=== PATIENT | male | born 1950 | race Two or more races ===

== ENCOUNTER 2017-09-17 14:30 | Inpatient (IN) | payer MEDICARE, MEDICAID ==
[~2017-09-17] VITALS: Ht 180.3 cm; Wt 78.0 kg
[2017-09-17 14:30] VITALS: BP 153/74
[~2017-09-17 14:30] MED LIST: AMLO2.5T45 PO; BENA10TA3 PO; DIAM PO; DOCU-150 PO; METF10002 PO; NPH,100I SQ; SITA50TA3 PO
[2017-09-17 15:30] VITALS: BP 153/74
[2017-09-17] MEDS ORDERED: DIPHENHYDRAMINE 25MG CAPSULE PO PRN (15:45)
[2017-09-17] MEDS ORDERED: GUAIFENESIN 200MG/10ML SUGAR FREE UDC PO PRN (15:45)
[2017-09-17] MEDS ORDERED: NA PHOS,M-B/NA PHOS,DI-BA ENEMA 118ML PR PRN (15:45)
[2017-09-17] MEDS ORDERED: IPRATROPIUM/ALBUTEROL 0.5-3(2.5)MG/3ML NEB HHN PRN (15:45)
[2017-09-17] MEDS ORDERED: CLONIDINE 0.1MG TABLET PO PRN (15:45)
[2017-09-17] MEDS ORDERED: DEXTROSE 50% WATER 50ML SYRINGE IV PRN (15:45)
[2017-09-17] MEDS ORDERED: LORAZEPAM 0.5MG TABLET PO PRN (15:45)
[2017-09-17] MEDS ORDERED: ACETAMINOPHEN 325MG TABLET PO PRN (15:45)
[2017-09-17] MEDS ORDERED: ONDANSETRON HCL 4MG TABLET PO PRN (15:45)
[2017-09-17] MEDS ORDERED: MAGNESIUM/ALUMINUM HYDROXIDE/SIMETHICONE 30ML UDC PO PRN (15:45)
[2017-09-17] MEDS: HYDROCODONE/ACETAMINOPHEN 10/325MG TABLET PO PRN (16:08)
[2017-09-17] MEDS: METFORMIN HCL 500MG TABLET PO SCH (17:08)
[2017-09-17] MEDS: BLOOD SUGAR DIAGNOSTIC STRIP TEST SCH ×2 (17:12→21:00)
[2017-09-17] MEDS ORDERED: LACTULOSE 20G/30ML UDC PO PRN (18:00)
[2017-09-17] MEDS ORDERED: BISACODYL 5MG TABLET PO PRN (18:00)
[2017-09-17] MEDS: INSULIN LISPRO 100 UNITS/ML SUBCUT SCH ×2 (18:43→22:01)
[2017-09-17] MEDS: DOCUSATE SODIUM 100MG CAPSULE PO SCH (18:44)
[2017-09-17 20:00] VITALS: BP 121/55
[2017-09-17] MEDS: METOPROLOL TARTRATE 50MG TABLET PO SCH (21:55)
[2017-09-17] MEDS: BENAZEPRIL 20MG TABLET PO SCH (21:56)
[2017-09-18] MEDS: HYDROCODONE/ACETAMINOPHEN 10/325MG TABLET PO PRN (05:44)
[2017-09-18] MEDS: BLOOD SUGAR DIAGNOSTIC STRIP TEST SCH ×4 (05:56→21:49)
[2017-09-18] MEDS: INSULIN LISPRO 100 UNITS/ML SUBCUT SCH ×4 (05:56→22:03)
[2017-09-18 08:00] VITALS: BP 138/69
[2017-09-18] MEDS: DOCUSATE SODIUM 100MG CAPSULE PO SCH ×2 (08:37→17:11)
[2017-09-18] MEDS: AMLODIPINE 2.5MG TABLET PO SCH (08:38)
[2017-09-18] MEDS: METOPROLOL TARTRATE 50MG TABLET PO SCH ×2 (08:38→22:00)
[2017-09-18] MEDS: ACETAZOLAMIDE 500MG ER CAPSULE PO SCH (08:38)
[2017-09-18] MEDS: METFORMIN HCL 500MG TABLET PO SCH ×2 (08:38→17:11)
[2017-09-18] MEDS: BENAZEPRIL 20MG TABLET PO SCH ×2 (08:39→21:59)
[2017-09-18] MEDS ORDERED: POTASSIUM CHLORIDE 20MEQ TABLET SR PO SCH (11:00)
[2017-09-18] MEDS: LINAGLIPTIN 5MG TABLET PO SCH (11:22)
[2017-09-18 12:20] LABS: HEMATOCRIT. 40.1 % (42.0-52.0); HEMOGLOBIN. 13.3 g/dL (14.0-18.0); MEAN CORPUSCULAR HEMOGLOBIN 27.8 pg (28.0-32.0); MEAN CORPUSCULAR VOLUME 83.6 fL (80.0-94.0); MEAN PLATELET VOLUME 7.7 fl (7.4-10.4); PLATELET 264 x1000/uL (130-400); RED CELL DISTRIBUTION WIDTH 13.9 % (11.6-14.6)
[2017-09-18 12:36] LABS: CHLORIDE 109 mEq/L (98-107)
[2017-09-18 13:29] LABS: PLATELET ESTIMATE NORMAL
[2017-09-18 20:46] VITALS: BP 125/70
[2017-09-18] MEDS: HYDROCODONE/ACETAMINOPHEN 5/325MG TABLET PO PRN (22:19)
[2017-09-19] MEDS: BLOOD SUGAR DIAGNOSTIC STRIP TEST SCH ×4 (06:31→21:00)
[2017-09-19] MEDS: INSULIN LISPRO 100 UNITS/ML SUBCUT SCH ×4 (06:35→22:11)
[2017-09-19 06:59] LABS: HEMATOCRIT 36.6 % (42.0-52.0); HEMOGLOBIN 12.4 g/dL (14.0-18.0); MEAN CORPUSCULAR HEMOGLOBIN 28.3 pg (28.0-32.0); MEAN CORPUSCULAR VOLUME 83.3 fL (80.0-94.0); PLATELET 254 x1000/uL (130-400); RED BLOOD CELL COUNT 4.39 mill/uL (4.7-6.1); RED CELL DISTRIBUTION WIDTH 13.9 % (11.6-14.6)
[2017-09-19 07:34] LABS: CHLORIDE 110 mEq/L (98-107)
[2017-09-19 08:00] VITALS: BP 119/62
[2017-09-19] MEDS: METOPROLOL TARTRATE 50MG TABLET PO SCH ×2 (08:42→22:18)
[2017-09-19] MEDS: AMLODIPINE 2.5MG TABLET PO SCH (08:42)
[2017-09-19] MEDS: BENAZEPRIL 20MG TABLET PO SCH ×2 (08:43→21:00)
[2017-09-19] MEDS: METFORMIN HCL 500MG TABLET PO SCH ×2 (08:43→18:37)
[2017-09-19] MEDS: DOCUSATE SODIUM 100MG CAPSULE PO SCH ×2 (08:43→18:38)
[2017-09-19] MEDS: ACETAZOLAMIDE 500MG ER CAPSULE PO SCH (08:43)
[2017-09-19] MEDS: HYDROCODONE/ACETAMINOPHEN 5/325MG TABLET PO PRN (09:11)
[2017-09-19] MEDS ORDERED: POTASSIUM CHLORIDE 20MEQ TABLET SR PO NR (10:00)
[2017-09-19] MEDS: LINAGLIPTIN 5MG TABLET PO SCH (11:49)
[2017-09-19] MEDS: HYDROCODONE/ACETAMINOPHEN 10/325MG TABLET PO PRN (15:44)
[2017-09-19] MEDS: FERROUS SULFATE 325MG TABLET PO SCH (18:38)
[2017-09-19 20:00] VITALS: BP 126/64
[2017-09-20] MEDS: BLOOD SUGAR DIAGNOSTIC STRIP TEST SCH ×4 (06:35→20:59)
[2017-09-20] MEDS: HYDROCODONE/ACETAMINOPHEN 10/325MG TABLET PO PRN ×2 (06:45→12:56)
[2017-09-20] MEDS: INSULIN LISPRO 100 UNITS/ML SUBCUT SCH ×4 (06:48→20:57)
[2017-09-20 07:42] LABS: CHLORIDE 110 mEq/L (98-107)
[2017-09-20 08:00] VITALS: BP 108/61
[2017-09-20] MEDS: BENAZEPRIL 20MG TABLET PO SCH ×2 (09:00→20:59)
[2017-09-20] MEDS: METOPROLOL TARTRATE 50MG TABLET PO SCH ×2 (09:00→20:43)
[2017-09-20] MEDS: AMLODIPINE 2.5MG TABLET PO SCH (09:00)
[2017-09-20] MEDS: ASPIRIN 81MG TABLET PO SCH (09:33)
[2017-09-20] MEDS: DOCUSATE SODIUM 100MG CAPSULE PO SCH ×2 (09:33→17:45)
[2017-09-20] MEDS: METFORMIN HCL 500MG TABLET PO SCH ×2 (09:33→17:45)
[2017-09-20] MEDS: POTASSIUM CHLORIDE 20MEQ TABLET SR PO SCH (09:33)
[2017-09-20] MEDS: FERROUS SULFATE 325MG TABLET PO SCH ×2 (09:33→17:45)
[2017-09-20] MEDS: LINAGLIPTIN 5MG TABLET PO SCH (12:53)
[2017-09-20] MEDS ORDERED: POTASSIUM CHLORIDE 20MEQ TABLET SR PO SCH (13:45)
[2017-09-20 20:00] VITALS: BP 117/69
[2017-09-21] MEDS: BLOOD SUGAR DIAGNOSTIC STRIP TEST SCH ×4 (05:36→21:00)
[2017-09-21] MEDS: INSULIN LISPRO 100 UNITS/ML SUBCUT SCH ×4 (06:01→22:02)
[2017-09-21 07:16] LABS: CHLORIDE 108 mEq/L (98-107)
[2017-09-21 08:00] VITALS: BP 128/65
[2017-09-21] MEDS: HYDROCODONE/ACETAMINOPHEN 10/325MG TABLET PO PRN (08:26)
[2017-09-21] MEDS: FERROUS SULFATE 325MG TABLET PO SCH ×2 (08:26→17:12)
[2017-09-21] MEDS: POTASSIUM CHLORIDE 20MEQ TABLET SR PO SCH (08:26)
[2017-09-21] MEDS: ASPIRIN 81MG TABLET PO SCH (08:27)
[2017-09-21] MEDS: AMLODIPINE 2.5MG TABLET PO SCH (08:28)
[2017-09-21] MEDS: BENAZEPRIL 20MG TABLET PO SCH ×2 (08:29→21:59)
[2017-09-21] MEDS: METFORMIN HCL 500MG TABLET PO SCH ×2 (09:49→17:12)
[2017-09-21] MEDS: DOCUSATE SODIUM 100MG CAPSULE PO SCH ×2 (09:49→17:12)
[2017-09-21] MEDS: METOPROLOL TARTRATE 50MG TABLET PO SCH ×2 (09:50→22:00)
[2017-09-21] MEDS: LINAGLIPTIN 5MG TABLET PO SCH (12:04)
[2017-09-21 20:00] VITALS: BP 135/70
[2017-09-21] MEDS: HYDROCODONE/ACETAMINOPHEN 5/325MG TABLET PO PRN (21:59)
[2017-09-21] MEDS: INSULIN NPH (HUMULIN-N) 100 UNITS/ML 3ML VIAL SUBCUT SCH (22:02)
[2017-09-22] MEDS: BLOOD SUGAR DIAGNOSTIC STRIP TEST SCH ×4 (06:02→20:43)
[2017-09-22] MEDS: INSULIN LISPRO 100 UNITS/ML SUBCUT SCH ×4 (06:02→21:03)
[2017-09-22] MEDS: HYDROCODONE/ACETAMINOPHEN 5/325MG TABLET PO PRN (06:45)
[2017-09-22 07:35] LABS: CHLORIDE 108 mEq/L (98-107)
[2017-09-22 08:00] VITALS: BP 122/66
[2017-09-22] MEDS: FERROUS SULFATE 325MG TABLET PO SCH ×2 (09:23→17:06)
[2017-09-22] MEDS: METFORMIN HCL 500MG TABLET PO SCH ×2 (09:23→17:06)
[2017-09-22] MEDS: ASPIRIN 81MG TABLET PO SCH (09:23)
[2017-09-22] MEDS: POTASSIUM CHLORIDE 20MEQ TABLET SR PO SCH (09:23)
[2017-09-22] MEDS: DOCUSATE SODIUM 100MG CAPSULE PO SCH ×2 (09:23→17:06)
[2017-09-22] MEDS: AMLODIPINE 2.5MG TABLET PO SCH (09:24)
[2017-09-22] MEDS: BENAZEPRIL 20MG TABLET PO SCH ×2 (09:24→20:43)
[2017-09-22] MEDS ORDERED: POTASSIUM CHLORIDE 20MEQ TABLET SR PO STA (09:35)
[2017-09-22] MEDS ORDERED: POTASSIUM CHLORIDE 20MEQ TABLET SR PO NR (09:45)
[2017-09-22] MEDS: LINAGLIPTIN 5MG TABLET PO SCH (11:49)
[2017-09-22] MEDS: METOPROLOL TARTRATE 50MG TABLET PO SCH ×2 (11:49→20:42)
[2017-09-22] MEDS: LIDOCAINE 5% PATCH TOP SCH (11:58)
[2017-09-22 20:00] VITALS: BP 120/63
[2017-09-22] MEDS: HYDROCODONE/ACETAMINOPHEN 10/325MG TABLET PO PRN (20:05)
[2017-09-22] MEDS ORDERED: HYDROCODONE/ACETAMINOPHEN 5/325MG TABLET PO PRN (20:30)
[2017-09-22] MEDS ORDERED: LORAZEPAM 0.5MG TABLET PO PRN (20:30)
[2017-09-22] MEDS: INSULIN NPH (HUMULIN-N) 100 UNITS/ML 3ML VIAL SUBCUT SCH (21:03)
[2017-09-23] MEDS: INSULIN LISPRO 100 UNITS/ML SUBCUT SCH (05:43)
[2017-09-23] MEDS: BLOOD SUGAR DIAGNOSTIC STRIP TEST SCH (05:43)
[2017-09-23] MEDS: HYDROCODONE/ACETAMINOPHEN 10/325MG TABLET PO PRN (06:35)
[2017-09-23 07:16] LABS: CHLORIDE 107 mEq/L (98-107)
[2017-09-23 08:00] VITALS: BP 129/78
[2017-09-23] MEDS: FERROUS SULFATE 325MG TABLET PO SCH (08:45)
[2017-09-23] MEDS: POTASSIUM CHLORIDE 20MEQ TABLET SR PO SCH (08:46)
[2017-09-23] MEDS: ASPIRIN 81MG TABLET PO SCH (08:46)
[2017-09-23] MEDS: METFORMIN HCL 500MG TABLET PO SCH (08:46)
[2017-09-23] MEDS: DOCUSATE SODIUM 100MG CAPSULE PO SCH (08:46)
[2017-09-23] MEDS: BENAZEPRIL 20MG TABLET PO SCH (08:47)
[2017-09-23] MEDS: AMLODIPINE 2.5MG TABLET PO SCH (08:47)
[2017-09-23] MEDS: METOPROLOL TARTRATE 50MG TABLET PO SCH (08:47)
[2017-09-23] MEDS: LIDOCAINE 5% PATCH TOP SCH (08:48)
[2017-09-23 10:18] VITALS: BP 129/78
== END 2017-09-23 11:20 | disposition home health service (06) | DRG 552 ==
LOC: UNDOADMIN 15:24
PROVIDERS: ADMIT Psychiatry & Neurology Neurology; ATTEND Internal Medicine
DX: M48.02 Spinal stenosis, cervical region (principal); E11.42 Type 2 diabetes mellitus with diabetic polyneuropathy; E11.319 Type 2 diabetes mellitus with unspecified diabetic retinopathy without macular edema; J98.11 Atelectasis; G95.20 Unspecified cord compression; E78.5 Hyperlipidemia, unspecified; E87.6 Hypokalemia; G31.84 Mild cognitive impairment of uncertain or unknown etiology; H54.7 Unspecified visual loss; I10 Essential (primary) hypertension; R26.9 Unspecified abnormalities of gait and mobility; F41.9 Anxiety disorder, unspecified; I25.10 Atherosclerotic heart disease of native coronary artery without angina pectoris; R53.81 Other malaise
CPT/HCPCS: 36415; 80048; 82962; 83735; 85025; 85027; 92610; 97110; 97116; 97162; 97167; 97530; 97535; J1815; L0172